=== PATIENT | male | born 2000 | race Two or more races ===

== ENCOUNTER 2024-05-02 22:48 | Emergency (ER) | payer MEDICAID ==
[~2024-05-02] VITALS: Ht 167.6 cm; Wt 72.7 kg
[2024-05-03] MEDS: IBUPROFEN 600 MG TABLET PO ONE (00:47)
[2024-05-03] MEDS: HYDROCODONE/ACETAMINOPHEN 5-325 MG TABLET PO ONE (00:47)
[2024-05-03 01:15] VITALS: BP 124/80; PULSE 69; RESP 16; TEMP 98.3; O2SAT 97
== END 2024-05-03 02:28 | disposition home or self-care (01) ==
LOC: EMS 22:48
DX: S92.412A Displaced fracture of proximal phalanx of left great toe, initial encounter for closed fracture (principal); V98.8XXA Other specified transport accidents, initial encounter; Y93.89 Activity, other specified; Y92.89 Other specified places as the place of occurrence of the external cause; Y99.8 Other external cause status
CPT/HCPCS: 99283